=== PATIENT | female | born 1935 | race Caucasian/White ===

== ENCOUNTER 2018-09-22 15:01 | Emergency (ER) | payer MEDICARE, BC ==
[2018-09-22] MEDS ORDERED: Sodium Chloride 0.9% 10 ML Syringe FLUSH PRN (15:56)
[2018-09-22 16:37] LABS: ANION GAP 16.1; CHLORIDE,CL 97 mmol/L (101-111); SODIUM,NA 134 mmol/L (135-145)
--- NOTE | 2018-09-22 17:06 | EDM.PDOC ---
ED HPI GENERAL MEDICAL PROBLEM - General Chief Complaint: Cardiovascular Problem Stated Complaint: FROM CLINIC Time Seen by Provider: 09/22/18 15:20 Source of Information: Reports: Patient, Provider, RN, RN Notes Reviewed History Limitations: Reports: No Limitations - History of Present Illness INITIAL COMMENTS - FREE TEXT/NARRATIVE: Patient presents to ER from [facility] with complaint of chest pain for the past couple of weeks and wraps around the sides and back. It goes away. On Friday night had much worse pain. Patient states back and shoulder trouble. She saw chiropractor on Friday. She was seen in clinic today. EKG and troponin were done per Nicole Mcbride. She has had no chest pain, shortness of breath, pain, nausea, vomiting, diarrhea, fever and chills. Onset: Gradual Duration: Constant Location: Reports: Chest Quality: Reports: Ache Severity: Moderate Improves with: Reports: None Worsens with: Reports: None Associated Symptoms: Reports: No Other Symptoms - Related Data Allergies Allergy/AdvReac Type Severity Reaction Status Date / Time ENVIROMENTAL Allergy Itching Uncoded 09/22/18 15:24 Home Meds: Home Meds Aspirin [Halfprin] 81 mg PO DAILY 07/05/14 [History] Fluticasone Propionate [Flonase] 2 spray NASBOTH ASDIRECTED PRN 07/05/14 [ History] Hydrochlorothiazide 1 tab PO DAILY 07/05/14 [History] Levothyroxine Sodium 75 mcg PO DAILY 07/05/14 [History] Lisinopril [Prinivil] 1 tab PO BID 07/05/14 [History] Multivitamin [Multivitamins] 1 cap PO DAILY 07/05/14 [History] Sertraline HCl 25 mg PO DAILY 07/05/14 [History] amLODIPine Besylate [Amlodipine Besylate] 1 tab PO DAILY 07/05/14 [History] atorvaSTATin [Lipitor] 5 mg PO BID 07/05/14 [History] metFORMIN [Glucophage] 500 mg PO BID 07/05/14 [History] Past Medical History HEENT History: Reports: Hard of Hearing, Impaired Vision Other HEENT History: wears glasses Cardiovascular History: Reports: Hypertension Respiratory History: Reports: None Genitourinary History: Reports: None ENVIRONMENTAL HEALTH SPECIALIST History: Reports: None Musculoskeletal History: Reports: Arthritis Neurological History: Reports: None Psychiatric History: Reports: None Endocrine/Metabolic History: Reports: Diabetes, Type II Hematologic History: Reports: None Immunologic History: Reports: None Oncologic (Cancer) History: Reports: None Dermatologic History: Reports: None - Infectious Disease History Infectious Disease History: Reports: Chicken Pox, Measles, Mumps - Past Surgical History Head Surgeries/Procedures: Reports: None HEENT Surgical History: Reports: Other (See Below) Other HEENT Surgeries/Procedures: macular dengenration Cardiovascular Surgical History: Reports: Carotid Endarterectomy GI Surgical History: Reports: Appendectomy, Cholecystectomy, Hernia Repair/Other Female Surgical History: Reports: Section Social & Family History - Tobacco Use Smoking Status *Q: Never Smoker Second Hand Smoke Exposure: No - Caffeine Use Caffeine Use: Reports: Coffee - Recreational Drug Use Recreational Drug Use: No ED ROS GENERAL - Review of Systems Review Of Systems: ROS reveals no pertinent complaints other than HPI. ED EXAM, GENERAL - Physical Exam Exam: See Below Exam Limited By: No Limitations General Appearance: Alert, WD/WN, No Apparent Distress Eye Exam: Bilateral Eye: EOMI, Normal Inspection, PERRL Ears: Normal External Exam, Normal Canal, Hearing Grossly Normal, Normal TMs Nose: Normal Inspection, Normal Mucosa, No Blood Throat/Mouth: Normal Inspection, Normal Lips, Normal Teeth, Normal Gums, Normal Oropharynx, Normal Voice, No Airway Compromise Head: Atraumatic, Normocephalic Neck: Normal Inspection, Supple, Non-Tender, Full Range of Motion Respiratory/Chest: No Respiratory Distress, Lungs Clear, Normal Breath Sounds, No Accessory Muscle Use, Chest Non-Tender Cardiovascular: Normal Peripheral Pulses, Regular Rate, Rhythm, No Edema, No Gallop, No JVD, No Murmur, No Rub GI/Abdominal: Normal Bowel Sounds, Soft, Non-Tender, No Organomegaly, No Distention, No Abnormal Bruit, No Mass (Female) Exam: Deferred Rectal (Female) Exam: Deferred Back Exam: Normal Inspection, Full Range of Motion, NT Extremities: Other (decreaed range of motion in arms (arthritis)) Neurological: Alert, Oriented, CN II-XII Intact, Normal Cognition, Normal Gait, Normal Reflexes, No Motor/Sensory Deficits Psychiatric: Normal Affect, Normal Mood Skin Exam: Warm, Dry, Intact, Normal Color, No Rash Course - Vital Signs Last Recorded V/S: Last Vital Signs Temp 96.8 F 02/26/19 15:18 Pulse 69 09/22/18 17:30 Resp 16 09/22/18 15:32 BP 199/62 H 09/22/18 17:30 Pulse Ox 99 09/22/18 15:32 - Orders/Labs/Meds Orders: Active Orders 24 hr Category Date Time Status EKG Documentation Completion [RC] STAT Care 09/22/18 15:58 Active Peripheral IV Care [RC] . DIRECTED Care 09/22/18 15:58 Active Peripheral IV Insertion Adult [OM.PC] Stat Oth 09/22/18 15:58 Ordered Labs: Laboratory Tests 09/22/18 09/22/18 09/22/18 Range/Units 15:09 16:10 16:10 WBC 94.9 H* (5.0-10.0) 10^3/uL RBC 4.33 (4.2-5.4) 10^6/uL Hgb 13.4 (12.0-16.0) g/dL Hct 40.6 (37.0-47.0) % MCV 93.8 (80-100) fL MCH 30.9 (27.0-34.0) pg MCHC 33.0 (33.0-35.0) g/dL Plt Count 125 L D (150-450) 10^3/uL Neut % (Auto) 8.9 L (42.2-75.2) % Lymph % (Auto) 88.3 H (20.5-50.1) % Lea % (Auto) 2.2 (2-8) % Eos % (Auto) 0.4 L (1.0-3.0) % Baso % (Auto) 0.2 (0.0-1.0) % Add Manual Diff Yes Neutrophils % (Manual) 10 L (42-75) % Lymphocytes % (Manual) 87 H (20-50) % Monocytes % (Manual) 2 (2-8) % Eosinophils % (Manual) 1 (1-3) % PT (9.0-12.0) SEC INR (0.9-1.2) APTT (22.0-34.0) SEC Sodium 134 L (135-145) mmol/L Potassium 4.1 (3.6-5.0) mmol/L Chloride 97 L (101-111) mmol/L Carbon Dioxide 25.0 (21.0-31.0) mmol/L Anion Gap 16.1 BUN 18 (7-18) mg/dL Creatinine 0.6 (0.6-1.3) mg/dL Est Cr Clr Drug Dosing 63.50 mL/min Estimated GFR (MDRD) > 60 BUN/Creatinine Ratio 30.00 Glucose 84 (74-105) mg/dL Calcium 9.9 (8.4-10.2) mg/dl Total Bilirubin 0.9 (0.2-1.0) mg/dL AST 30 (10-42) IU/L ALT 20 (10-60) IU/L Alkaline Phosphatase 38 L (42-121) IU/L Creatine Kinase (26-174) IU/L Creatine Kinase Index (0-2.4) % CK-MB (CK-2) (0.4-4.7) ng/mL Troponin I 0.15 H* (0.00-0.02) ng/ml Total Protein 6.7 (6.7-8.2) g/dl Albumin 4.2 (3.2-5.5) g/dl Globulin 2.5 Albumin/Globulin Ratio 1.68 Urine Color Yellow (YELLOW) Urine Appearance Clear (CLEAR) Urine pH 5.5 (5.0-9.0) Ur Specific [place] 1.020 (1.005-1.030) Urine Protein Negative (NEGATIVE) Urine Glucose (UA) Negative (NEGATIVE) Urine Ketones Negative (NEGATIVE) Urine Occult Blood Negative (NEGATIVE) Urine Nitrite Negative (NEGATIVE) Urine Bilirubin Negative (NEGATIVE) Urine Urobilinogen 0.2 (0.2-1.0) mg/dL Ur Leukocyte Esterase Negative (NEGATIVE) 09/22/18 09/22/18 09/22/18 Range/Units 16:10 16:10 16:10 WBC (5.0-10.0) 10^3/uL RBC (4.2-5.4) 10^6/uL Hgb (12.0-16.0) g/dL Hct (37.0-47.0) % MCV (80-100) fL MCH (27.0-34.0) pg MCHC (33.0-35.0) g/dL Plt Count (150-450) 10^3/uL Neut % (Auto) (42.2-75.2) % Lymph % (Auto) (20.5-50.1) % Lea % (Auto) (2-8) % Eos % (Auto) (1.0-3.0) % Baso % (Auto) (0.0-1.0) % Add Manual Diff Neutrophils % (Manual) (42-75) % Lymphocytes % (Manual) (20-50) % Monocytes % (Manual) (2-8) % Eosinophils % (Manual) (1-3) % PT 10.7 (9.0-12.0) SEC INR 1.1 (0.9-1.2) APTT 27.6 (22.0-34.0) SEC Sodium (135-145) mmol/L Potassium (3.6-5.0) mmol/L Chloride (101-111) mmol/L Carbon Dioxide (21.0-31.0) mmol/L Anion Gap BUN (7-18) mg/dL Creatinine (0.6-1.3) mg/dL Est Cr Clr Drug Dosing mL/min Estimated GFR (MDRD) BUN/Creatinine Ratio Glucose (74-105) mg/dL Calcium (8.4-10.2) mg/dl Total Bilirubin (0.2-1.0) mg/dL AST (10-42) IU/L ALT (10-60) IU/L Alkaline Phosphatase (42-121) IU/L Creatine Kinase 65 (26-174) IU/L Creatine Kinase Index 4.5 H (0-2.4) % CK-MB (CK-2) 2.90 (0.4-4.7) ng/mL Troponin I (0.00-0.02) ng/ml Total Protein (6.7-8.2) g/dl Albumin (3.2-5.5) g/dl Globulin Albumin/Globulin Ratio Urine Color (YELLOW) Urine Appearance (CLEAR) Urine pH (5.0-9.0) Ur Specific [place] (1.005-1.030) Urine Protein (NEGATIVE) Urine Glucose (UA) (NEGATIVE) Urine Ketones (NEGATIVE) Urine Occult Blood (NEGATIVE) Urine Nitrite (NEGATIVE) Urine Bilirubin (NEGATIVE) Urine Urobilinogen (0.2-1.0) mg/dL Ur Leukocyte Esterase (NEGATIVE) Meds: Medications Discontinued Medications Generic Name Dose Route Start Last Admin Trade Name Freq PRN Reason Stop Dose Admin Aspirin 324 mg 09/22/18 17:12 09/22/18 17:32 Aspirin PO 09/22/18 17:13 324 mg ONETIME ONE Administration Atorvastatin Calcium 40 mg 09/22/18 17:12 09/22/18 17:31 Lipitor PO 09/22/18 17:13 40 mg ONETIME ONE Administration Heparin Sodium (Porcine) 4,000 units 09/22/18 17:19 09/22/18 17:30 Heparin Sodium IVPUSH 09/22/18 17:20 4,000 units .BOLUS ONE Administration Heparin Sodium/Sodium Chloride 25,000 units in 500 mls @ 20 mls/hr 09/22/18 17 :30 09/22/18 17:34 Heparin 25,000 Units In 1/2 Ns 500 Ml IV 910 units/hr TITRATE ROGERS 18.2 mls/hr Administration Protocol 1,000 UNITS/HR Metoprolol Tartrate 50 mg 09/22/18 17:11 09/22/18 17:30 Lopressor PO 09/22/18 17:12 50 mg ONETIME ONE Administration Sodium Chloride 10 ml 09/22/18 15:56 09/22/18 16:30 Saline Flush FLUSH 10 ml ASDIRECTED PRN Administration Keep Vein Open Departure - Departure Time of Disposition: 17:37 Disposition: DC/Tfer to Acute Hospital 02 Reason for Transfer *Q: Other Condition: Fair Clinical Impression: NSTEMI (non-ST elevated myocardial infarction), CLL (chronic lymphocytic leukemia) Forms: ED Department Discharge, Interfacility Transfer EMTALA - My Orders Last 24 Hours: My Active Orders 09/22/18 15:58 EKG Documentation Completion [RC] STAT Peripheral IV Care [RC] . DIRECTED Peripheral IV Insertion Adult [OM.PC] Stat - Assessment/Plan Last 24 Hours: My Active Orders 09/22/18 15:58 EKG Documentation Completion [RC] STAT Peripheral IV Care [RC] . DIRECTED Peripheral IV Insertion Adult [OM.PC] Stat
[2018-09-22] MEDS ORDERED: Metoprolol Tartrate 50 MG Tab PO ONE (17:11)
[2018-09-22] MEDS ORDERED: Aspirin 81 MG Tab.Chew PO ONE (17:12)
[2018-09-22] MEDS ORDERED: atorvaSTATin 20 MG Tab PO ONE (17:12)
[2018-09-22] MEDS ORDERED: Heparin Sodium 5,000 Units/ML Vial IVPUSH ONE (17:19)
[2018-09-22] MEDS ORDERED: Heparin Sodium/0.45% NaCl 25,000 UNITS/500 ML BAG IV SCH (17:30)
== END 2018-09-22 18:01 ==
LOC: DL.ED 15:01
DX: I21.4 Non-ST elevation (NSTEMI) myocardial infarction (principal); C91.10 Chronic lymphocytic leukemia of B-cell type not having achieved remission; I10 Essential (primary) hypertension; E11.9 Type 2 diabetes mellitus without complications; Z79.899 Other long term (current) drug therapy; Z79.82 Long term (current) use of aspirin; Z79.84 Long term (current) use of oral hypoglycemic drugs
CPT/HCPCS: 36415; 80053; 81003; 82550; 82553; 84484; 85025; 85610; 85730; 93005; 96365; 96375; 99285-25; A9270-GY; J1644